=== PATIENT | male | born 1960 | race Caucasian/White ===

== ENCOUNTER 2016-04-25 09:19 | Day surgery (SDC) | payer MEDICAID ==
[~2016-04-25 09:19] MED LIST: BUPIVACAINE 0.5% PF 30 ML VIAL SUBQ ONE
[2016-04-25] MEDS ORDERED: ceFAZolin 2 GM/50 ML 50 ML IV ONE (09:24)
[2016-04-25] MEDS ORDERED: LACTATED RINGERS 1,000 ML IV ONE ×3 (09:30→17:30)
[2016-04-25] MEDS ORDERED: LIDOCAINE-PF 2% 10 ML AMP SUBQ ONE (15:45)
[2016-04-25] MEDS ORDERED: MIDAZOLAM 2 MG/2 ML VIAL IVP ONE (15:45)
[2016-04-25] MEDS ORDERED: fentaNYL 100 MCG/2 ML VIAL IVP ONE (15:45)
[2016-04-25] MEDS ORDERED: SUCCINYLCHOLINE 200 MG/10 ML VIAL IVP ONE (15:45)
[2016-04-25] MEDS ORDERED: PROPOFOL 200 MG/20 ML VIAL IVP ONE (15:45)
[2016-04-25] MEDS ORDERED: GLYCOPYRROLATE 1 MG/5 ML VIAL IVP ONE (15:45)
[2016-04-25] MEDS ORDERED: ACETAMINOPHEN 1,000 MG/100 ML VIAL IV ONE (15:45)
[2016-04-25] MEDS ORDERED: NEOSTIGMINE 1 MG/1 ML 10 ML MDV IVP ONE (15:45)
[2016-04-25] MEDS ORDERED: ONDANSETRON 4 MG/2 ML VIAL IVP ONE (15:45)
[2016-04-25] MEDS ORDERED: DEXAMETHASONE 4 MG/ML VIAL IVP ONE (15:45)
[2016-04-25] MEDS ORDERED: ROCURONIUM 50 MG/5 ML VIAL IVP ONE (15:45)
[2016-04-25] MEDS: fentaNYL 100 MCG/2 ML VIAL ONE ×4 (17:15→17:35)
[2016-04-25] MEDS: HYDROmorphone 1 MG/ML SYRINGE ONE ×2 (17:25→17:40)
[2016-04-25] MEDS ORDERED: HYDROcod/ACETAM 5/325 MG TABLET ONE (18:19)
[2016-04-25] MEDS ORDERED: ONDANSETRON 4 MG/2 ML VIAL ONE (18:22)
== END 2016-04-25 09:20 | disposition home or self-care (01) ==
PROC: 0YU54JZ Supplement Right Inguinal Region with Synthetic Substitute, Percutaneous Endoscopic Approach (ICD-10-PCS; principal; 2016-04-25 10:30)
DX: K40.90 Unilateral inguinal hernia, without obstruction or gangrene, not specified as recurrent (principal); F17.200 Nicotine dependence, unspecified, uncomplicated; I10 Essential (primary) hypertension; E78.5 Hyperlipidemia, unspecified; K21.9 Gastro-esophageal reflux disease without esophagitis
CPT/HCPCS: 49650; A9270; C1781; J0690; J1170; J7120

== ENCOUNTER 2017-04-25 08:07 | Emergency (ER) | payer MEDICAID ==
--- NOTE | 2017-04-25 08:26 | ED Physician Documentation ---
History of Present Illness - Stated complaint Stated Complaint: TOOTH PX - Chief complaint Chief Complaint: Heent - Additonal information Additional information: hx from pt 56 male porr dentition pain and swelling L lower 1st molar no fever no CP able to swallow and breathe Review of Systems Constitutional: denies: Fever, Chills Throat: reports: Dental pain / toothache Cardiac: denies: Chest pain / pressure Respiratory: denies: Dyspnea Immunocompromised: denies: Immunocompromised PD PAST MEDICAL HISTORY - Past Medical History Cardiovascular: Hypertension, High cholesterol Respiratory: None Endocrine/Autoimmune: None GI: GERD : None HEENT: None Psych: None Musculoskeletal: None Derm: Eczema - Past Surgical History Past Surgical History: No General: Hiatal hernia repair - Present Medications Home Medications: Ambulatory Orders Medication Instructions Recorded Confirmed Omeprazole [PriLOSEC] 20 mg PO DAILY 10/08/14 04/23/16 Amlodipine Besylate 10 mg PO DAILY 12/11/14 04/23/16 Lovastatin 40 mg PO DAILY 04/23/16 04/23/16 Amoxicillin 500 mg PO Q8H #21 capsule 04/25/17 - Allergies Allergies/Adverse Reactions: Allergies Allergy/AdvReac Type Severity Reaction Status Date / Time No Known Drug Allergies Allergy Verified 04/25/16 09:42 - Social History Does the pt smoke?: Yes Smoking Status: Current every day smoker Does the pt drink ETOH?: Yes Does the pt have substance abuse?: No - Immunizations Immunizations are current?: No PD ED PE NORMAL - Vitals Vital signs reviewed: Yes - General General: Alert and oriented X 3 - HEENT HEENT: Other (extensive decay, may teeth just stub in the gumline, L lower 1st molar tedner and surround gum inlfammed and swollen without discrete abscess to drain, no submandibular swelling, no trismus) - Cardiac Cardiac: RRR, No murmur - Respiratory Respiratory: No respiratory distress, Clear bilaterally Results - Vitals Vitals: Vital Signs - 24 hr 04/25/17 08:18 Temperature 36.5 C Heart Rate 90 Respiratory 18 Rate Blood Pressure 162/115 H O2 Saturation 97 Oxygen O2 Source Room air PD MEDICAL DECISION MAKING - ED course ED course: pt states pain controlled with tylenol he just feels he needs ab he has a dentist to fup with BP needs to be followed up Departure - Departure Disposition: Home, Self Care Clinical Impression: Dental infection Condition: Good Instructions: ED Abscess Dental Follow-Up: Shawnee Jama ARNP [Primary Care Provider] - (to get your blood pressure rechecked - it was high today) Prescriptions: Amoxicillin 500 mg PO Q8H #21 capsule
[2017-04-25 08:31] VITALS: BP 165/112
== END 2017-04-25 08:32 | disposition home or self-care (01) ==
LOC: ED 08:07
DX: K04.7 Periapical abscess without sinus (principal); I10 Essential (primary) hypertension; E78.00 Pure hypercholesterolemia, unspecified; F17.200 Nicotine dependence, unspecified, uncomplicated
CPT/HCPCS: 99283

== ENCOUNTER 2017-05-11 09:39 | Emergency (ER) | payer MEDICAID ==
[2017-05-11 09:48] VITALS: BP 173/109
[2017-05-11] MEDS ORDERED: LIDOCAINE 1% 2 ML VIAL ONE (11:18)
--- NOTE | 2017-05-11 11:41 | ED Physician Documentation ---
PD HPI HEENT - Stated complaint Stated Complaint: DENTAL PX - Chief complaint Chief Complaint: Heent - History obtained from History obtained from: Patient - History of Present Illness Timing - onset: How many days ago (2) Timing - duration: Days (2) Timing - details: Gradual onset, Still present Location: Tooth Improves: Medication Worsens: Everything Similar symptoms before: Diagnosis (abscessed tooth) Recently seen: Emergency Dept - Additional information Additional information: 56-year-old male has had a problem with a tooth in the left lower 2 weeks ago and he took some amoxicillin for this improved and now the pain is returned after he ate some pizza 2 days ago. Review of Systems Constitutional: reports: Fatigue. denies: Fever Eyes: denies: Decreased vision Ears: denies: Ear pain Nose: denies: Congestion Throat: reports: Dental pain / toothache. denies: Sore throat Cardiac: denies: Chest pain / pressure Respiratory: denies: Dyspnea, Cough PD PAST MEDICAL HISTORY - Past Medical History Cardiovascular: Hypertension, High cholesterol Respiratory: None Endocrine/Autoimmune: None GI: GERD : None HEENT: None Psych: None Musculoskeletal: None Derm: Eczema - Past Surgical History Past Surgical History: No General: Hiatal hernia repair - Present Medications Home Medications: Ambulatory Orders Medication Instructions Recorded Confirmed Omeprazole [PriLOSEC] 20 mg PO DAILY 10/08/14 04/23/16 Amlodipine Besylate 10 mg PO DAILY 12/11/14 04/23/16 Lovastatin 40 mg PO DAILY 04/23/16 04/23/16 Amoxicillin 500 mg PO Q8H #21 capsule 04/25/17 HYDROcod/ACETAM 5/325 [[place] 5/325] 1 - 2 ea PO Q6H PRN #15 tablet 05/11/17 Penicillin Vk 500 mg PO Q6H 7 Days #30 tablet 05/11/17 - Allergies Allergies/Adverse Reactions: Allergies Allergy/AdvReac Type Severity Reaction Status Date / Time No Known Drug Allergies Allergy Verified 04/25/16 09:42 - Social History Does the pt smoke?: Yes Smoking Status: Current every day smoker Does the pt drink ETOH?: Yes Does the pt have substance abuse?: No - Immunizations Immunizations are current?: No - POLST Patient has POLST: No PD ED PE NORMAL - Vitals Vital signs reviewed: Yes (hypertensive ) - General General: Alert and oriented X 3, No acute distress, Well developed/nourished - HEENT HEENT: Atraumatic, PERRL, EOMI, Other (There is a mass to the buccal gingival fold that is fluctuant. This is on the left lower.) - Neck Neck: Supple, no meningeal sign, No bony TTP - Respiratory Respiratory: No respiratory distress - Extremities Extremities: No deformity, No edema - Neuro Neuro: No motor deficit, No sensory deficit Eye Opening: Spontaneous Motor: Obeys Commands Verbal: Oriented GCS Score: 15 - Psych Psych: Normal mood, Normal affect PD ED PE EXPANDED - HEENT HEENT Visual: 1 - abscess, swelling, tenderness Results - Vitals Vitals: Vital Signs - 24 hr 05/11/17 09:45 Temperature 37.0 C Heart Rate 88 Respiratory 17 Rate Blood Pressure 173/109 H O2 Saturation 98 Oxygen O2 Source Room air Procedures - Abscess I&D (location) left buccal Preparation: Lidocaine 1%, Other (lolli-chandrika) Incision: Incised with scalpel, Purulent drainage, Loculations broken, Culture obtained Other: Pt tolerated well, Dressing applied, Antibiotic prescribed PD MEDICAL DECISION MAKING - ED course Complexity details: considered differential, d/w patient ED course: 56-year-old male with an abscess in the left vocal fold requires I&D. There is a fair amount of pus drained from the area and will place patient on some penicillin. Departure - Departure Disposition: 01 Home, Self Care Clinical Impression: Dental abscess Condition: Stable Instructions: ED Abscess Dental Follow-Up: Shawnee Jama ARNP [Primary Care Provider] - Prescriptions: HYDROcod/ACETAM 5/325 [[place] 5/325] 1 - 2 ea PO Q6H PRN #15 tablet PRN Reason: Pain Penicillin Vk 500 mg PO Q6H 7 Days #30 tablet Comments: Today in the Emergency Department your blood pressure was elevated. This can happen from the stress of the visit itself, from a current illness or circumstance or from uncontrolled hypertension. If you take blood pressure medications take your usual mediations, have your blood pressure re-checked in an appropriate setting and follow up any elevation with your primary care doctor.
== END 2017-05-11 11:47 | disposition home or self-care (01) ==
LOC: ED 09:39
DX: K04.7 Periapical abscess without sinus (principal); I10 Essential (primary) hypertension; E78.00 Pure hypercholesterolemia, unspecified; F17.200 Nicotine dependence, unspecified, uncomplicated
CPT/HCPCS: 41800; 87070; 87205; 99283

== ENCOUNTER 2018-05-01 07:16 | Outpatient (CLI) | payer MEDICAID ==
[2018-05-01 08:02] LABS: BASOPHILS % (AUTO) 0.7 %; EOSINOPHILS # (AUTO) 0.1 10^3/uL (0.0-0.7); EOSINOPHILS % (AUTO) 2.2 %; HGB - HEMOGLOBIN 16.6 g/dL (14.0-18.0); LYMPHOCYTES % (AUTO) 22.5 %; MEAN CORPUSCULAR HEMOGLOBIN 33.3 pg (27.0-31.0); MEAN CORPUSCULAR HGB CONC 35.3 g/dL (32.0-36.0); MEAN CORPUSCULAR VOLUME 94.4 fL (80.0-94.0); MEAN PLATELET VOLUME 9.3 fL (7.4-11.4); MONOCYTES # (AUTO) 0.4 10^3/uL (0.0-1.0); MONOCYTES % (AUTO) 8.6 %; NEUTROPHILS # (AUTO) 3.1 10^3/uL (1.5-6.6); PLT - PLATELET COUNT 170 10^3/uL (130-450); RED CELL DISTRIBUTION WIDTH 12.7 % (12.0-15.0); WHITE BLOOD COUNT 4.6 x10^3/uL (4.8-10.8)
[2018-05-01 08:15] LABS: ALBUMIN 4.5 g/dL (3.2-5.5); ALBUMIN/GLOBULIN RATIO 1.3 (1.0-2.2); ALKALINE PHOSPHATASE 55 IU/L (42-121); ALT ALANINE AMINOTRANSFERASE 67 IU/L (10-60); AST ASPARTATE AMINOTRANSFERASE 49 IU/L (10-42); BILIRUBIN,TOTAL 0.8 mg/dL (0.2-1.0); BUN - BLOOD UREA NITROGEN 7 mg/dL (6-20); CALCIUM 9.2 mg/dL (8.5-10.3); CARBON DIOXIDE - CO2 24 mmol/L (21-32); CHLORIDE 99 mmol/L (101-111); CHOL/HDL RATIO 4.2 (<5.0); CHOLESTEROL 204 mg/dL; CREATININE 0.8 mg/dL (0.6-1.2); GFR - MDRD 99 (>89); GLUCOSE 130 mg/dL (70-100); HB2 TOTAL 17.9 g/dL; HDL CHOLESTEROL 49 mg/dL; HEMOGLOBIN A1C 0.64 g/dL; HEMOGLOBIN A1C % 5.4 % (4.6-6.2); LDL CHOLESTEROL,CALCULATED 137 mg/dL; LDL/HDL RATIO 2.8 (<3.6); SODIUM 133 mmol/L (135-145); TOTAL PROTEIN 7.9 g/dL (6.7-8.2); VLDL CHOLESTEROL 18 mg/dL
== END 2018-05-01 07:17 | disposition home or self-care (01) ==
LOC: LAB 07:16
PROVIDERS: ATTEND Nurse Practitioner Family
DX: I10 Essential (primary) hypertension (principal); Z13.1 Encounter for screening for diabetes mellitus; E78.5 Hyperlipidemia, unspecified
CPT/HCPCS: 36415; 80053; 80061; 83036; 83721; 84443; 85025

== ENCOUNTER 2019-06-29 07:56 | Outpatient (CLI) | payer MEDICAID ==
[2019-06-29 08:27] LABS: BASOPHILS % (AUTO) 0.7 %; EOSINOPHILS # (AUTO) 0.1 10^3/uL (0.0-0.7); EOSINOPHILS % (AUTO) 1.8 %; HGB - HEMOGLOBIN 16.4 g/dL (14.0-18.0); LYMPHOCYTES # (AUTO) 0.9 10^3/uL (1.5-3.5); LYMPHOCYTES % (AUTO) 19.7 %; MEAN CORPUSCULAR HEMOGLOBIN 33.5 pg (27.0-31.0); MEAN CORPUSCULAR HGB CONC 36.3 g/dL (32.0-36.0); MEAN CORPUSCULAR VOLUME 92.4 fL (80.0-94.0); MEAN PLATELET VOLUME 10.9 fL (7.4-11.4); MONOCYTES # (AUTO) 0.4 10^3/uL (0.0-1.0); MONOCYTES % (AUTO) 8.3 %; NEUTROPHILS # (AUTO) 3.1 10^3/uL (1.5-6.6); NEUTROPHILS % (AUTO) 69.3 %; PLT - PLATELET COUNT 191 10^3/uL (130-450); RED BLOOD COUNT 4.89 10^6/uL (4.70-6.10); RED CELL DISTRIBUTION WIDTH 12.4 % (12.0-15.0); WHITE BLOOD COUNT 4.5 x10^3/uL (4.8-10.8)
[2019-06-29 08:35] LABS: ALBUMIN 4.5 g/dL (3.2-5.5); ALBUMIN/GLOBULIN RATIO 1.2 (1.0-2.2); ALKALINE PHOSPHATASE 60 IU/L (42-121); ALT ALANINE AMINOTRANSFERASE 72 IU/L (10-60); AST ASPARTATE AMINOTRANSFERASE 48 IU/L (10-42); BILIRUBIN,TOTAL 0.8 mg/dL (0.2-1.0); BUN - BLOOD UREA NITROGEN 7 mg/dL (6-20); CALCIUM 9.1 mg/dL (8.5-10.3); CARBON DIOXIDE - CO2 27 mmol/L (21-32); CHLORIDE 99 mmol/L (101-111); CHOL/HDL RATIO 4.3 (<5.0); CHOLESTEROL 220 mg/dL; CREATININE 0.8 mg/dL (0.6-1.2); GLUCOSE 127 mg/dL (70-100); HDL CHOLESTEROL 51 mg/dL; LDL CHOLESTEROL,CALCULATED 156 mg/dL; LDL/HDL RATIO 3.1 (<3.6); SODIUM 135 mmol/L (135-145); TOTAL PROTEIN 8.4 g/dL (6.7-8.2); VLDL CHOLESTEROL 13 mg/dL
== END 2019-06-29 07:57 | disposition home or self-care (01) ==
LOC: LAB 07:56
PROVIDERS: ATTEND Registered Nurse
DX: E78.5 Hyperlipidemia, unspecified (principal); I10 Essential (primary) hypertension
CPT/HCPCS: 36415; 80053; 80061; 83721; 84153; 84443; 85025

== ENCOUNTER 2020-04-26 08:00 | Outpatient (CLI) | payer MEDICAID ==
[2020-04-26 08:16] LABS: BASOPHILS % (AUTO) 0.7 %; EOSINOPHILS # (AUTO) 0.1 10^3/uL (0.0-0.7); EOSINOPHILS % (AUTO) 1.5 %; HGB - HEMOGLOBIN 15.9 g/dL (14.0-18.0); LYMPHOCYTES # (AUTO) 0.8 10^3/uL (1.5-3.5); MEAN CORPUSCULAR HEMOGLOBIN 32.4 pg (27.0-31.0); MEAN CORPUSCULAR HGB CONC 35.4 g/dL (32.0-36.0); MEAN CORPUSCULAR VOLUME 91.4 fL (80.0-94.0); MEAN PLATELET VOLUME 10.8 fL (7.4-11.4); MONOCYTES # (AUTO) 0.5 10^3/uL (0.0-1.0); MONOCYTES % (AUTO) 8.6 %; PLT - PLATELET COUNT 188 10^3/uL (130-450); RED BLOOD COUNT 4.91 10^6/uL (4.70-6.10); RED CELL DISTRIBUTION WIDTH 11.5 % (12.0-15.0); WHITE BLOOD COUNT 5.5 x10^3/uL (4.8-10.8)
[2020-04-26 08:36] LABS: ALBUMIN 4.6 g/dL (3.2-5.5); ALBUMIN/GLOBULIN RATIO 1.4 (1.0-2.2); ALKALINE PHOSPHATASE 60 IU/L (42-121); ALT ALANINE AMINOTRANSFERASE 93 IU/L (10-60); AST ASPARTATE AMINOTRANSFERASE 66 IU/L (10-42); BILIRUBIN,TOTAL 1.2 mg/dL (0.2-1.0); BUN - BLOOD UREA NITROGEN 10 mg/dL (6-20); CALCIUM 9.5 mg/dL (8.5-10.3); CARBON DIOXIDE - CO2 25 mmol/L (21-32); CHLORIDE 87 mmol/L (101-111); CHOL/HDL RATIO 3.8 (<5.0); CHOLESTEROL 215 mg/dL; CREATININE 0.8 mg/dL (0.6-1.2); GLUCOSE 128 mg/dL (70-100); HDL CHOLESTEROL 56 mg/dL; LDL CHOLESTEROL,CALCULATED 140 mg/dL; LDL/HDL RATIO 2.5 (<3.6); VLDL CHOLESTEROL 19 mg/dL
== END 2020-04-26 23:59 | disposition home or self-care (01) ==
LOC: LAB 08:00
PROVIDERS: ATTEND Registered Nurse
DX: R79.89 Other specified abnormal findings of blood chemistry (principal); F10.10 Alcohol abuse, uncomplicated; R73.03 Prediabetes; R73.9 Hyperglycemia, unspecified; E78.5 Hyperlipidemia, unspecified; I10 Essential (primary) hypertension
CPT/HCPCS: 36415; 80053; 80061; 83721; 84153; 84443; 85025

== ENCOUNTER 2020-11-29 13:51 | Outpatient (CLI) | payer MEDICAID | END 2020-11-29 13:52 | disposition home or self-care (01) | LOC: COV 13:51 | PROVIDERS: ATTEND Family Medicine | DX: U07.1 COVID-19 (principal) ==

== ENCOUNTER 2021-05-18 17:18 | Emergency (ER) | payer MEDICAID ==
[2021-05-18] MEDS ORDERED: KETOROLAC 15 MG/ML VIAL IVP STA (17:37)
[2021-05-18] MEDS ORDERED: SODIUM CHLORIDE 0.9% 1,000 ML IV STA (17:37)
[2021-05-18] MEDS ORDERED: HYDROmorphone 1 MG/ML CARPUJECT IVP STA (17:37)
--- NOTE | 2021-05-18 17:38 | ED Physician Documentation ---
PD HPI ABD PAIN - Stated complaint Stated Complaint: RIGHT SIDE BACK & GROIN PX - Chief complaint Chief Complaint: Abd Pain - History obtained from History obtained from: Patient - Additional information Additional information: 60-year-old gentleman developed gradual onset right flank pain radiating to the right testicle starting at 10 AM today. It is not associated with hematuria or any other urinary complaints. He has no history of renal colic. Does have a history of hypertension and tobacco abuse as well as high cholesterol. He denies nausea. Pain is constant. Review of Systems Ten Systems: 10 systems reviewed and negative Constitutional: denies: Fever, Chills Cardiac: denies: Chest pain / pressure, Palpitations Respiratory: denies: Dyspnea, Cough GI: denies: Nausea, Vomiting, Diarrhea : denies: Dysuria, Frequency PD PAST MEDICAL HISTORY - Past Medical History Cardiovascular: Hypertension, High cholesterol Respiratory: None Endocrine/Autoimmune: None GI: GERD : None HEENT: None Psych: None Musculoskeletal: None Derm: Eczema - Past Surgical History Past Surgical History: No General: Hiatal hernia repair - Present Medications Home Medications: Ambulatory Orders Medication Instructions Recorded Confirmed Omeprazole [PriLOSEC] 20 mg PO DAILY 10/08/14 05/18/21 Amlodipine Besylate 10 mg PO DAILY 12/11/14 05/18/21 Cefdinir 300 mg PO BID #20 cap 05/18/21 HYDROcod/ACETAM 5/325 [[place] 5/325] 1 - 2 tab PO Q6H PRN #15 tablet 05/18/21 Lisinopril [Zestril] 40 mg PO DAILY 05/18/21 05/18/21 Pravastatin Sodium 20 mg PO DAILY 05/18/21 05/18/21 - Allergies Allergies/Adverse Reactions: Allergies Allergy/AdvReac Type Severity Reaction Status Date / Time No Known Drug Allergies Allergy Verified 05/18/21 17:28 - Social History Does the pt smoke?: Yes Smoking Status: Current every day smoker Does the pt drink ETOH?: Yes Does the pt have substance abuse?: No - Immunizations Immunizations are current?: No - POLST Patient has POLST: No PD ED PE NORMAL - Vitals Vital signs reviewed: Yes - General General: Alert and oriented X 3, No acute distress - Neck Neck: Supple, no meningeal sign, No bony TTP - Cardiac Cardiac: RRR, No murmur - Respiratory Respiratory: No respiratory distress, Clear bilaterally - Abdomen Abdomen: Normal bowel sounds, Soft, Non tender - Back Back: No CVA TTP, No spinal TTP - Derm Derm: Normal color, Warm and dry - Extremities Extremities: No edema, No calf tenderness / cord - Neuro Neuro: Alert and oriented X 3, Normal speech Results - Vitals Vitals: Vital Signs - 24 hr 05/18/21 05/18/21 17:25 19:00 Temperature 36.8 C Heart Rate 110 H 93 Respiratory 20 16 Rate Blood Pressure 148/89 H 123/76 O2 Saturation 99 98 Oxygen O2 Source Room air - Labs Labs: Laboratory Tests 05/18/21 05/18/21 05/18/21 17:33 17:37 17:37 WBC 18.3 H RBC 4.34 L Hgb 13.9 L Hct 38.2 L MCV 88.0 MCH 32.0 H MCHC 36.4 H RDW 12.2 Plt Count 370 MPV 9.6 Neut # (Auto) 16.6 H Lymph # (Auto) 0.6 L [place] # (Auto) 0.8 Eos # (Auto) 0.0 Baso # (Auto) 0.1 Absolute Nucleated RBC 0.00 Nucleated RBC % 0.0 Sodium 125 L Potassium 4.2 Chloride 95 L Carbon Dioxide 19 L Anion Gap 11.0 BUN 8 Creatinine 1.2 Estimated GFR (MDRD) 61 L Glucose 136 H Calcium 8.9 Urine Color YELLOW Urine Clarity SL. CLOUDY Urine pH 6.0 Ur Specific [place] 1.020 Urine Protein NEGATIVE Urine Glucose (UA) NEGATIVE Urine Ketones TRACE Urine Occult Blood SMALL H Urine Nitrite NEGATIVE Urine Bilirubin NEGATIVE Urine Urobilinogen 0.2 (NORMAL) Ur Leukocyte Esterase LARGE H Urine RBC 0-5 Urine WBC >25 H Urine WBC Clumps PRESENT Ur Squamous Epith Cells RARE Squamous Urine Bacteria Few Ur Microscopic Review INDICATED Urine Culture Comments INDICATED PD MEDICAL DECISION MAKING - ED course ED course: 60-year-old gentleman presents with gradual onset right flank pain radiating to the testicle starting earlier today. Differential diagnosis includes vascular issue pyelonephritis or kidney stone. CT imaging shows moderate left sided hydroureter, but no stone. Some concern for prostatic issues. He was feeling much better after pain medication. He does have an elevated white count but appears nontoxic and without hemodynamic compromise. He was administered IV Rocephin and fluids here. Discussed need for follow-up. Departure - Departure Disposition: Home, Self Care Clinical Impression: Pyelonephritis Condition: Good Record reviewed to determine appropriate education?: Yes Instructions: Pyelonephritis Dc Prescriptions: Cefdinir 300 mg PO BID #20 cap HYDROcod/ACETAM 5/325 [[place] 5/325] 1 - 2 tab PO Q6H PRN #15 tablet PRN Reason: Pain Comments: You were seen today for pain from the right kidney and we found you to have a kidney infection on that side. You also have a moderately low sodium level at 125 but this is similar to a value you had about a month ago. Return if worsening, if you develop a high fever shaking chills. Follow-up with your doctor and consider urology referral to see if you are retaining urine from a large prostate. I sent your prescriptions electronically to [facility] in [place]. We will culture your urine, the results should be done in 48-72 hours. If an antibiotic change is necessary we will call you. Return if worse in the meantime, especially if you develop increasing flank pain, fevers, or cannot keep down the medication. I am prescribing a short course of narcotic pain medication for you. These are potentially dangerous and addictive medications that should be used carefully. These medications may constipate you. Take an njem-esy-pwdfvrh stool softener (docusate) twice daily with plenty of water while taking these medications. If you go 24 hours without a bowel movement, take hmti-eye-purgeyh miralax, per package instructions. Do not drink or drive while taking these medications. If you received narcotic or sedating medications while in the emergency department, do not drive for 24 hours. Store this medication in a safe, secure place and out of reach of children. It is a violation of federal law to give or sell this medication to another person or to use in a manner other than prescribed. The ED will not refill narcotic prescriptions, including prescriptions lost or stolen. To dispose of unwanted medications: 1. [facility] at [address] in [place] has a medication drop box. They accept prescription medications (in pill form) Thursday through Thursday 9:00 a.m. to 5:00 p.m. 2. The [facility] accepts prescription medications (in pill form only) for disposal year round. Call for more information. 3. Contact the [facility] for the next [facility] sponsored prescription drug collection event. , [phone], or [phone]; Note that many narcotic pain relievers also contain Tylenol/acetaminophen. Please ensure that your total dose of acetaminophen from all sources does not exceed 3 g (3000 mg) per day.
[2021-05-18 17:42] LABS: BASOPHILS # (AUTO) 0.1 10^3/uL (0.0-0.1); BASOPHILS % (AUTO) 0.4 %; EOSINOPHILS % (AUTO) 0.2 %; HCT - HEMATOCRIT 38.2 % (42.0-52.0); HGB - HEMOGLOBIN 13.9 g/dL (14.0-18.0); LYMPHOCYTES # (AUTO) 0.6 10^3/uL (1.5-3.5); LYMPHOCYTES % (AUTO) 3.3 %; MEAN CORPUSCULAR HGB CONC 36.4 g/dL (32.0-36.0); MEAN PLATELET VOLUME 9.6 fL (7.4-11.4); MONOCYTES # (AUTO) 0.8 10^3/uL (0.0-1.0); MONOCYTES % (AUTO) 4.4 %; NEUTROPHILS # (AUTO) 16.6 10^3/uL (1.5-6.6); NEUTROPHILS % (AUTO) 91.2 %; PLT - PLATELET COUNT 370 10^3/uL (130-450); RED BLOOD COUNT 4.34 10^6/uL (4.70-6.10); RED CELL DISTRIBUTION WIDTH 12.2 % (12.0-15.0); WHITE BLOOD COUNT 18.3 x10^3/uL (4.8-10.8)
[2021-05-18 17:48] LABS: BILIRUBIN,URINE NEGATIVE (NEGATIVE); GLUCOSE, URINE (UA) NEGATIVE (NEGATIVE); KETONES,URINE (UA) TRACE mg/dL (NEGATIVE); LEUKOCYTE ESTERASE, URINE LARGE (NEGATIVE); NITRITE,URINE NEGATIVE (NEGATIVE); OCCULT BLOOD,URINE SMALL (NEGATIVE); PROTEIN,URINE NEGATIVE (NEGATIVE); UROBILINOGEN,URINE 0.2 (NORMAL) E.U./dL (NORMAL)
[2021-05-18 17:49] LABS: CLARITY,URINE SL. CLOUDY (CLEAR)
[2021-05-18 17:51] LABS: CALCIUM 8.9 mg/dL (8.5-10.3); CREATININE 1.2 mg/dL (0.6-1.2); POTASSIUM 4.2 mmol/L (3.5-5.0)
[2021-05-18 17:56] LABS: BACTERIA,URINE Few /HPF (None Seen); RBC,URINE 0-5 /HPF (0-5); SQUAMOUS EPITHELIAL CELL,UR RARE Squamous (<= Few); WBC CLUMPS,URINE PRESENT; WBC,URINE >25 /HPF (0-3)
[2021-05-18] MEDS ORDERED: cefTRIAXone 1 GM in SODIUM CHLORIDE 0.9% MINIBAG 100 ML IV STA (18:09)
[2021-05-18] MEDS ORDERED: cefTRIAXone 1 GM VIAL ONE (18:20)
--- NOTE | 2021-05-18 18:20 | CT Report ---
PROCEDURE: Abdomen/Pelvis WO INDICATIONS: R flank pain TECHNIQUE: Noncontrast 5 mm thick sections acquired from the diaphragms to the symphysis. 5 mm coronal and sagi ttal reformats were then performed. For radiation dose reduction, the following was used: automated exposure control, adjustment of mA and/or kV according to patient size. COMPARISON: None. FINDINGS: Image quality: Excellent. ABDOMEN: Lung bases: Lung bases are clear. Heart size is normal. At least moderate coronary artery calcific ation is seen. Solid organs: Liver and spleen are normal in size. Gallbladder wall does not appear thickened. P ancreas is normal in contours. No adrenal nodules. There is moderate right-sided hydronephrosis and hydroureter seen. There is mild to moderate right-si ded perinephric fat stranding. No stones are seen along the course of the right ureter. No ureteral s tones are seen. No left-sided stones are seen. No left-sided hydronephrosis. Peritoneum and bowel: Unenhanced bowel loops demonstrate normal wall thickness and caliber. No free fluid or air. Distal colonic diverticulosis is seen, without findings of active diverticulitis. A n ormal appendix is incidentally noted. Nodes and vessels: No retroperitoneal or mesenteric adenopathy by size criteria. Aorta and inferior vena cava are normal in caliber. Miscellaneous: No ventral hernias. PELVIS: Genitourinary: The bladder is decompressed, which limits its evaluation. Moderate circumferential amanda dder wall thickening is seen. Miscellaneous: No inguinal adenopathy. Bilateral fat-containing inguinal hernias can be seen. Bones: No suspicious bony lesions. S-shaped scoliotic curvature is incidentally noted. Age-appropri ate degenerative changes are seen, which are worst involving the lower lumbar spine bilateral L5 pars defects are seen. Grade 1 L5-S1 anterolisthesis is seen. No vertebral body compression fractures. IMPRESSION: Moderate left-sided hydroureter and hydronephrosis can be seen, yet without an obstructing stone. Ple ase consider a recently passed stone. Please also correlate for urinary tract infection with pyelonep hritis. No nonobstructing stones are seen. Moderate bladder wall thickening is seen, which may simply be secondary to its decompressed state. Ho wever, please consider bladder outlet obstruction in a male patient of this age. Incidental note is made of: At least moderate coronary artery calcification S shaped scoliotic curvature Normal appendix Diverticulosis, without active diverticulitis Bilateral fat-containing inguinal hernias Bilateral L5 pars defects, with grade 1 L5-S1 anterolisthesis Focal lower lumbar spine degenerative change Reviewed by: Leobardo Solomon MD on 05/18/2021 5:18 PM [facility] Approved by: Leobardo Solomon MD on 05/18/2021 5:18 PM [facility] Station ID: [id number]
[2021-05-18 19:00] VITALS: BP 123/76
== END 2021-05-18 19:08 | disposition home or self-care (01) ==
LOC: ED 17:18
DX: N12 Tubulo-interstitial nephritis, not specified as acute or chronic (principal); I10 Essential (primary) hypertension; Z72.0 Tobacco use
CPT/HCPCS: 36415; 74176; 80048; 81001; 85025; 87077; 87086; 87181; 96365; 96375; 99284; J1170; 81003

== ENCOUNTER 2021-06-30 12:12 | Emergency (ER) | payer MEDICAID ==
[2021-06-30 12:26] VITALS: BP 146/96
[2021-06-30 12:52] LABS: BILIRUBIN,URINE NEGATIVE (NEGATIVE); GLUCOSE, URINE (UA) NEGATIVE (NEGATIVE); KETONES,URINE (UA) NEGATIVE (NEGATIVE); LEUKOCYTE ESTERASE, URINE MODERATE (NEGATIVE); NITRITE,URINE NEGATIVE (NEGATIVE); OCCULT BLOOD,URINE SMALL (NEGATIVE); PROTEIN,URINE TRACE mg/dL (NEGATIVE); UROBILINOGEN,URINE 0.2 (NORMAL) E.U./dL (NORMAL)
[2021-06-30 13:09] LABS: CLARITY,URINE HAZY (CLEAR); WBC,URINE >25 /HPF (0-3)
[2021-06-30 13:10] LABS: BACTERIA,URINE Few /HPF (None Seen); RBC,URINE 0-5 /HPF (0-5); SQUAMOUS EPITHELIAL CELL,UR FEW Squamous (<= Few)
--- NOTE | 2021-06-30 13:21 | ED Physician Documentation ---
PD HPI MALE - Stated complaint Stated Complaint: HEMATURIA - Chief complaint Chief Complaint: General - History obtained from History obtained from: Patient - History of Present Illness Timing - onset: Today Timing - duration: Hours Timing - details: Gradual onset, Still present Associated symptoms: Urinary frequency, Hematuria Similar symptoms before: Diagnosis (pyelonephritis) Recently seen: Emergency Dept - Additional information Additional information: Previously well 60-year-old male with a history of hypertension was seen in the emergency department 6 weeks ago with back pain and hematuria was diagnosed with pyelonephritis and had a sensitive E. coli grow from the urine culture. He was treated with Rocephin and cefdinir and had improvement in his symptoms but he never felt that he got completely better. He has a weak stream and this is unchanged. He has a double dribble now when he urinates. Today he has developed pink urine and on a void following that he had some small clots in the urine as well. He is not on Flomax and he has not been able to get into see his primary care doctor until the of this month. He denies fever or back pain today. Review of Systems Constitutional: denies: Fever Eyes: denies: Decreased vision Ears: denies: Ear pain Nose: denies: Congestion Throat: denies: Sore throat Cardiac: denies: Chest pain / pressure Respiratory: denies: Dyspnea, Cough GI: denies: Abdominal Pain, Nausea, Vomiting, Constipation, Diarrhea : reports: Dysuria, Frequency, Hematuria Skin: denies: Rash Musculoskeletal: denies: Neck pain, Back pain, Extremity pain Neurologic: denies: Generalized weakness, Focal weakness, Numbness PD PAST MEDICAL HISTORY - Past Medical History Cardiovascular: Hypertension, High cholesterol Respiratory: None Endocrine/Autoimmune: None GI: GERD : None HEENT: None Psych: None Musculoskeletal: None Derm: Eczema - Past Surgical History Past Surgical History: No General: Hiatal hernia repair - Present Medications Home Medications: Ambulatory Orders Medication Instructions Recorded Confirmed Omeprazole [PriLOSEC] 20 mg PO DAILY 10/08/14 05/18/21 Amlodipine Besylate 10 mg PO DAILY 12/11/14 05/18/21 Cefdinir 300 mg PO BID #20 cap 05/18/21 HYDROcod/ACETAM 5/325 [[place] 5/325] 1 - 2 tab PO Q6H PRN #15 tablet 05/18/21 Lisinopril [Zestril] 40 mg PO DAILY 05/18/21 05/18/21 Pravastatin Sodium 20 mg PO DAILY 05/18/21 05/18/21 Cefdinir 300 mg PO BID #14 cap 06/30/21 Tamsulosin [Flomax] 0.4 mg PO DAILY #20 cap 06/30/21 - Allergies Allergies/Adverse Reactions: Allergies Allergy/AdvReac Type Severity Reaction Status Date / Time No Known Drug Allergies Allergy Verified 06/30/21 12:23 - Social History Does the pt smoke?: Yes Smoking Status: Current every day smoker Does the pt drink ETOH?: Yes Does the pt have substance abuse?: No - Immunizations Immunizations are current?: No - POLST Patient has POLST: No PD ED PE NORMAL - Vitals Vital signs reviewed: Yes (hypertension) - General General: Alert and oriented X 3, No acute distress, Well developed/nourished - HEENT HEENT: Atraumatic, PERRL, EOMI - Neck Neck: Supple, no meningeal sign - Cardiac Cardiac: RRR, No murmur - Respiratory Respiratory: No respiratory distress, Clear bilaterally - Abdomen Abdomen: Normal bowel sounds, Soft, Non tender, Non distended, No organomegaly - Back Back: No CVA TTP, No spinal TTP - Derm Derm: Normal color, Warm and dry, No rash - Extremities Extremities: No deformity, No edema - Neuro Neuro: Alert and oriented X 3, purler 2-12 intact, No motor deficit, Normal speech Eye Opening: Spontaneous Motor: Obeys Commands Verbal: Oriented GCS Score: 15 - Psych Psych: Normal mood, Normal affect Results - Vitals Vitals: Vital Signs - 24 hr 06/30/21 12:16 Temperature 36.4 C L Heart Rate 90 Respiratory 16 Rate Blood Pressure 146/96 H O2 Saturation 97 Oxygen O2 Source Room air - Labs Labs: Laboratory Tests 06/30/21 12:45 Urine Color LIGHT YELLOW Urine Clarity HAZY Urine pH 6.0 Ur Specific [place] <=1.005 Urine Protein TRACE Urine Glucose (UA) NEGATIVE Urine Ketones NEGATIVE Urine Occult Blood SMALL H Urine Nitrite NEGATIVE Urine Bilirubin NEGATIVE Urine Urobilinogen 0.2 (NORMAL) Ur Leukocyte Esterase MODERATE H Urine RBC 0-5 Urine WBC >25 H Ur Squamous Epith Cells FEW Squamous Urine Bacteria Few Ur Microscopic Review INDICATED Urine Culture Comments INDICATED PD MEDICAL DECISION MAKING - ED course Complexity details: reviewed old records, reviewed results, re-evaluated patient, considered differential, d/w patient ED course: 60-year-old male with acute hematuria and no back pain has urinary tract infection on evaluation of the urine with hematuria. He does not have any flank pain today he does not have any fever nausea or vomiting. Today we will put him onto the Flomax and repeat his dose of cefdinir. He does have follow-up. Departure - Departure Disposition: 01 Home, Self Care Clinical Impression: Prostatic hypertrophy Urinary tract infection Qualifiers: Urinary tract infection type: acute cystitis Hematuria presence: with hematuria Qualified Code(s): N30.01 - Acute cystitis with hematuria Condition: Stable Instructions: ED UTI Cystitis Male, ED Prostate Enlarged Follow-Up: Holley Dodson ARNP [Primary Care Provider] - Prescriptions: Cefdinir 300 mg PO BID #14 cap Tamsulosin [Flomax] 0.4 mg PO DAILY #20 cap Comments: Santosh, today it looks like you have urinary tract infection again. There is blood in the urine and the prior organism that grew from your culture was sensitive to the antibiotic you were prescribed. Today we are prescribing some Flomax to help improve your stream. In addition I have E scribed the antibiotic to [facility] in [place].
== END 2021-06-30 13:42 | disposition home or self-care (01) ==
LOC: ED 12:12
DX: N40.0 Benign prostatic hyperplasia without lower urinary tract symptoms (principal); N30.01 Acute cystitis with hematuria; F17.200 Nicotine dependence, unspecified, uncomplicated
CPT/HCPCS: 81001; 81003; 87077; 87086; 87181; 99282; 99283

== ENCOUNTER 2021-07-17 07:11 | Outpatient (CLI) | payer MEDICAID ==
[2021-07-17 07:22] LABS: BASOPHILS % (AUTO) 0.4 %; EOSINOPHILS # (AUTO) 0.1 10^3/uL (0.0-0.7); EOSINOPHILS % (AUTO) 1.2 %; HCT - HEMATOCRIT 42.5 % (42.0-52.0); HGB - HEMOGLOBIN 14.8 g/dL (14.0-18.0); MEAN CORPUSCULAR HEMOGLOBIN 32.5 pg (27.0-31.0); MEAN CORPUSCULAR HGB CONC 34.8 g/dL (32.0-36.0); MEAN CORPUSCULAR VOLUME 93.4 fL (80.0-94.0); MEAN PLATELET VOLUME 10.1 fL (7.4-11.4); MONOCYTES # (AUTO) 0.4 10^3/uL (0.0-1.0); MONOCYTES % (AUTO) 5.6 %; NEUTROPHILS # (AUTO) 5.4 10^3/uL (1.5-6.6); NEUTROPHILS % (AUTO) 78.5 %; PLT - PLATELET COUNT 220 10^3/uL (130-450); RED BLOOD COUNT 4.55 10^6/uL (4.70-6.10); RED CELL DISTRIBUTION WIDTH 12.5 % (12.0-15.0); WHITE BLOOD COUNT 6.9 x10^3/uL (4.8-10.8)
[2021-07-17 07:42] LABS: ALBUMIN 3.9 g/dL (3.2-5.5); ALKALINE PHOSPHATASE 55 IU/L (42-121); ALT ALANINE AMINOTRANSFERASE 20 IU/L (10-60); AST ASPARTATE AMINOTRANSFERASE 21 IU/L (10-42); BILIRUBIN,TOTAL 0.9 mg/dL (0.2-1.0); BUN - BLOOD UREA NITROGEN 9 mg/dL (6-20); CALCIUM 9.1 mg/dL (8.5-10.3); CARBON DIOXIDE - CO2 27 mmol/L (21-32); CHLORIDE 98 mmol/L (101-111); CHOL/HDL RATIO 4.5 (<5.0); CHOLESTEROL 223 mg/dL; GFR - MDRD 76 (>89); GLUCOSE 160 mg/dL (70-100); HDL CHOLESTEROL 50 mg/dL; LDL CHOLESTEROL,CALCULATED 139 mg/dL; LDL/HDL RATIO 2.8 (<3.6); POTASSIUM 4.2 mmol/L (3.5-5.0); SODIUM 133 mmol/L (135-145); TOTAL PROTEIN 7.8 g/dL (6.7-8.2); TRIGLYCERIDES 168 mg/dL; VLDL CHOLESTEROL 34 mg/dL
[2021-07-17 07:54] LABS: THYROID STIMULATING HORMONE 2.2 uIU/mL (0.34-5.60)
== END 2021-07-17 07:12 | disposition home or self-care (01) ==
LOC: LAB 07:11
PROVIDERS: ATTEND Registered Nurse
DX: R73.9 Hyperglycemia, unspecified (principal); E78.5 Hyperlipidemia, unspecified; I10 Essential (primary) hypertension; Z13.29 Encounter for screening for other suspected endocrine disorder
CPT/HCPCS: 36415; 80053; 80061; 83721; 84443; 85025

== ENCOUNTER 2021-08-01 06:54 | Outpatient (CLI) | payer MEDICAID ==
[2021-08-01 12:55] LABS: ESTIMATED AVERAGE GLUCOSE 117 mg/dL (70-100); HEMOGLOBIN A1c% 5.7 % (4.27-6.07)
== END 2021-08-01 06:55 | disposition home or self-care (01) ==
LOC: LAB 06:54
PROVIDERS: ATTEND Registered Nurse
DX: N40.0 Benign prostatic hyperplasia without lower urinary tract symptoms (principal); R73.03 Prediabetes
CPT/HCPCS: 36415; 83036; 84153

== ENCOUNTER 2021-12-30 07:17 | Emergency (ER) | payer MEDICAID ==
--- NOTE | 2021-12-30 07:27 | ED Physician Documentation ---
PD HPI ABD PAIN - Stated complaint Stated Complaint: ABD PX - History obtained from History obtained from: Patient - History of Present Illness Timing - onset: How many days ago (6) Timing - duration: Days (6) Timing - details: Gradual onset, Still present, Waxing and waning Quality: Cramping, Aching Location: Suprapubic, Other (lower abd) Radiation: No: Left flank, Right flank Improved by: BM (but has had just small amounts of stool out.). No: Eating Worsened by: Eating (about 30 minutes after, increased lower cramping.) Associated symptoms: Nausea, Constipation. No: Fever, Diarrhea, Dysuria (has cloudy urine though), Hematuria Recently seen: Not recently seen Review of Systems Constitutional: denies: Fever, Chills, Myalgias Nose: denies: Rhinorrhea / runny nose, Congestion Throat: denies: Sore throat Cardiac: denies: Chest pain / pressure Respiratory: denies: Dyspnea, Cough GI: reports: Abdominal Pain, Nausea, Vomiting (just once this morning), Constipation. denies: Diarrhea : reports: Frequency, Hesitancy. denies: Dysuria, Hematuria Skin: denies: Rash, Lesions Musculoskeletal: denies: Neck pain, Back pain PD PAST MEDICAL HISTORY - Past Medical History Cardiovascular: Hypertension, High cholesterol Respiratory: None Endocrine/Autoimmune: None GI: GERD : None HEENT: None Psych: None Musculoskeletal: None Derm: Eczema - Past Surgical History Past Surgical History: No General: Hiatal hernia repair - Present Medications Home Medications: Ambulatory Orders Medication Instructions Recorded Confirmed Omeprazole [PriLOSEC] 20 mg PO DAILY 10/08/14 05/18/21 Amlodipine Besylate 10 mg PO DAILY 12/11/14 05/18/21 Cefdinir 300 mg PO BID #20 cap 05/18/21 HYDROcod/ACETAM 5/325 [[place] 5/325] 1 - 2 tab PO Q6H PRN #15 tablet 05/18/21 Lisinopril [Zestril] 40 mg PO DAILY 05/18/21 05/18/21 Pravastatin Sodium 20 mg PO DAILY 05/18/21 05/18/21 Cefdinir 300 mg PO BID #14 cap 06/30/21 Tamsulosin [Flomax] 0.4 mg PO DAILY #20 cap 06/30/21 Docusate Sodium 100Mg Capsule 100 mg PO DAILY #15 cap 12/30/21 [Colace 100Mg Capsule] HYDROcod/ACETAM 5/325 [[place] 5/325] 1 ea PO Q6H PRN #18 tablet 12/30/21 Ondansetron Odt [Zofran] 4 mg TL Q6H PRN #15 tablet 12/30/21 cephALEXin [Keflex] 500 mg PO TID #20 cap 12/30/21 metroNIDAZOLE [Flagyl] 250 mg PO TID #20 tablet 12/30/21 - Allergies Allergies/Adverse Reactions: Allergies Allergy/AdvReac Type Severity Reaction Status Date / Time No Known Drug Allergies Allergy Verified 12/30/21 07:27 - Social History Does the pt smoke?: Yes Smoking Status: Current every day smoker Does the pt drink ETOH?: Yes Does the pt have substance abuse?: No - Immunizations Immunizations are current?: No - POLST Patient has POLST: No PD ED PE NORMAL - Vitals Vital signs reviewed: Yes - General General: Alert and oriented X 3, No acute distress, Well developed/nourished - Cardiac Cardiac: RRR, No murmur - Respiratory Respiratory: Clear bilaterally - Abdomen Abdomen: Normal bowel sounds, Soft, Non distended, No organomegaly, Other (tender periumbilical and lower abd both left and right. Mild guarding. No percussion nor rebound. Umbilical area without noted hernia.) - Male Male : Deferred - Rectal Rectal: Deferred - Back Back: No CVA TTP - Derm Derm: Normal color, Warm and dry - Extremities Extremities: Normal ROM s pain, No edema, No calf tenderness / cord - Neuro Neuro: Alert and oriented X 3, No motor deficit, Normal speech Results - Vitals Vitals: Oxygen O2 Source Room air - Labs Labs: Microbiology 12/30/21 07:45 Urine Culture - Final Urine,Random Escherichia Coli Laboratory Tests 12/30/21 12/30/21 12/30/21 07:45 07:45 08:05 WBC 9.4 RBC 4.60 L Hgb 14.5 Hct 40.2 L MCV 87.4 MCH 31.5 H MCHC 36.1 H RDW 13.1 Plt Count 287 MPV 11.4 Neut # (Auto) 7.8 H Lymph # (Auto) 1.0 L [place] # (Auto) 0.5 Eos # (Auto) 0.1 Baso # (Auto) 0.1 Absolute Nucleated RBC 0.00 Nucleated RBC % 0.0 Sodium 130 L Potassium 4.0 Chloride 96 L Carbon Dioxide 24 Anion Gap 10.0 BUN 10 Creatinine 1.1 Estimated GFR (MDRD) 68 L Glucose 114 H Calcium 9.0 Total Bilirubin 0.6 AST 25 ALT 27 Alkaline Phosphatase 61 Total Protein 7.3 Albumin 3.6 Globulin 3.7 Albumin/Globulin Ratio 1.0 Lipase 23 Urine Color YELLOW Urine Clarity SL. CLOUDY Urine pH 6.0 Ur Specific [place] 1.020 Urine Protein 30 H Urine Glucose (UA) NEGATIVE Urine Ketones TRACE Urine Occult Blood SMALL H Urine Nitrite POSITIVE H Urine Bilirubin NEGATIVE Urine Urobilinogen 0.2 (NORMAL) Ur Leukocyte Esterase LARGE H Urine RBC 6-10 H Urine WBC >25 H Ur Squamous Epith Cells NONE SEEN Urine Bacteria Moderate H Ur Microscopic Review INDICATED Urine Culture Comments INDICATED - Rads (name of study) abd/pelvic CT Radiology: Prelim report reviewed (sigmoid diverticulitis with phlegmon. No abscess. c/w local perforation. thickened bladder wall as well. ), See rad report PD MEDICAL DECISION MAKING - ED course Complexity details: reviewed results, re-evaluated patient (the patient says he feels more comfortable with meds. Discussed findings and info from Dr. Connelly and patient does not want to be hospitalized at this time. Wants to try home therapy. ), considered differential, d/w patient, d/w [facility] consultant (Dr. Connelly - who said not surgical approach. Could be home therapy versus inpt depending on patient symptoms. ) Departure - Departure Disposition: 01 Home, Self Care Clinical Impression: UTI (urinary tract infection), Sigmoid diverticulitis Condition: Stable Record reviewed to determine appropriate education?: Yes Follow-Up: Holley Dodson ARNP [Primary Care Provider] - Louis Connelly MD [Provider Admit Priv/Credential] - Prescriptions: Docusate Sodium 100Mg Capsule [Colace 100Mg Capsule] 100 mg PO DAILY #15 cap metroNIDAZOLE [Flagyl] 250 mg PO TID #20 tablet cephALEXin [Keflex] 500 mg PO TID #20 cap HYDROcod/ACETAM 5/325 [[place] 5/325] 1 ea PO Q6H PRN #18 tablet PRN Reason: Pain Ondansetron Odt [Zofran] 4 mg TL Q6H PRN #15 tablet PRN Reason: Nausea / Vomiting Comments: Your urine sample does show signs of a bladder infection. The CT scan did not show any inflammation of the kidneys however suggest a bladder infection. The CT scan also showed diverticulitis in the sigmoid area which is the lower part of the intestine just behind the bladder so is likely accounting for the feeling of having to have a bowel movement or constipation. It does have a local area of inflammation that might have been a small perforation. I talked with her surgeon and who said this would be treated with antibiotics and not surgical. Use the cephalexin and metronidazole antibiotics 3 times daily for a week as prescribed. Stay well-hydrated. Ondansetron if needed for nausea. Add Tylenol or hydrocodone/acetaminophen if needed for pains every 6 hours. Liquid to soft food diet over the next few days. Use docusate mild stool softener daily for the next several days as well. Recheck if not improving well over the next several days return if worsening. Follow-up with Dr. Connelly regarding potential colonoscopy once this is improved in the near future, to ensure no other abnormalities in the intestine and that it heals up well. I sent your prescriptions to [facility] pharmacy in [place]. My narcotic instructions I am prescribing a short course of narcotic pain medication for you. These are potentially dangerous and addictive medications that should be used carefully. These medications may constipate you. Take an [id number] stool softener such as docusate twice daily with plenty of water while taking these medications. If you go 24 hours without a bowel movement, take [id number] MiraLAX, per package instructions. Do not drink or drive while taking these medications. If you received narcotic or sedating medications while in the emergency department do not drive for 24 hours. Store this medication in a safe, secure place and out of reach of children. It is a violation of federal law to give or sell this medication to another person or to use in a manner other than prescribed. The ED will not refill narcotic prescriptions, including prescriptions lost or stolen. You can dispose of unwanted medications at the [facility]'s office or at several pharmacies such as [facility]. Discharge Date/Time: 12/30/21 11:47
[2021-12-30] MEDS ORDERED: HYDROmorphone 1 MG/ML CARPUJECT IVP STA (07:45)
[2021-12-30] MEDS ORDERED: KETOROLAC 15 MG/ML VIAL IVP STA (07:45)
[2021-12-30] MEDS ORDERED: SODIUM CHLORIDE 0.9% 1,000 ML IV STA (07:45)
[2021-12-30] MEDS ORDERED: ONDANSETRON 4 MG/2 ML VIAL IVP STA (07:45)
[2021-12-30 07:53] LABS: BILIRUBIN,URINE NEGATIVE (NEGATIVE); GLUCOSE, URINE (UA) NEGATIVE (NEGATIVE); KETONES,URINE (UA) TRACE mg/dL (NEGATIVE); LEUKOCYTE ESTERASE, URINE LARGE (NEGATIVE); NITRITE,URINE POSITIVE (NEGATIVE); OCCULT BLOOD,URINE SMALL (NEGATIVE); PROTEIN,URINE 30 mg/dL (NEGATIVE); UROBILINOGEN,URINE 0.2 (NORMAL) E.U./dL (NORMAL)
[2021-12-30 07:54] LABS: BASOPHILS # (AUTO) 0.1 10^3/uL (0.0-0.1); BASOPHILS % (AUTO) 0.6 %; EOSINOPHILS # (AUTO) 0.1 10^3/uL (0.0-0.7); EOSINOPHILS % (AUTO) 1.1 %; HCT - HEMATOCRIT 40.2 % (42.0-52.0); HGB - HEMOGLOBIN 14.5 g/dL (14.0-18.0); LYMPHOCYTES % (AUTO) 10.2 %; MEAN CORPUSCULAR HEMOGLOBIN 31.5 pg (27.0-31.0); MEAN CORPUSCULAR HGB CONC 36.1 g/dL (32.0-36.0); MEAN CORPUSCULAR VOLUME 87.4 fL (80.0-94.0); MEAN PLATELET VOLUME 11.4 fL (7.4-11.4); MONOCYTES # (AUTO) 0.5 10^3/uL (0.0-1.0); NEUTROPHILS # (AUTO) 7.8 10^3/uL (1.5-6.6); NEUTROPHILS % (AUTO) 82.8 %; PLT - PLATELET COUNT 287 10^3/uL (130-450); RED CELL DISTRIBUTION WIDTH 13.1 % (12.0-15.0); WHITE BLOOD COUNT 9.4 x10^3/uL (4.8-10.8)
[2021-12-30 08:00] LABS: CLARITY,URINE SL. CLOUDY (CLEAR)
[2021-12-30 08:13] LABS: BACTERIA,URINE Moderate /HPF (None Seen); SQUAMOUS EPITHELIAL CELL,UR NONE SEEN (<= Few); WBC,URINE >25 /HPF (0-3)
[2021-12-30 08:24] LABS: ALBUMIN 3.6 g/dL (3.2-5.5); BILIRUBIN,TOTAL 0.6 mg/dL (0.2-1.0); CREATININE 1.1 mg/dL (0.6-1.2); TOTAL PROTEIN 7.3 g/dL (6.7-8.2)
--- NOTE | 2021-12-30 09:27 | CT Report ---
PROCEDURE: Abdomen/Pelvis W INDICATIONS: LLQ Abdominal pain, diverticulitis suspected CONTRAST: IV CONTRAST: Optiray 320 ml: 100 PO CONTRAST: *NO PO CONTRAST TECHNIQUE: After the administration of IV contrast, 5 mm thick sections acquired from the diaphragms to the symp hysis. 5 mm thick coronal and sagittal reformats were acquired. For radiation dose reduction, the f ollowing was used: automated exposure control, adjustment of mA and/or kV according to patient size. COMPARISON: 05/18/2021 FINDINGS: Image quality: Excellent. ABDOMEN: Lung bases: Lung bases are clear. Heart size is normal. Moderate, partially imaged coronary artery calcification and aortic valvular calcification. Solid organs: The liver is normal in size and slightly steatotic. 2 coarse rounded parenchymal calci fications present along the bare area of the liver. The gallbladder is distended. No calcifications. The biliary system is nondilated. The pancreas, spleen, and adrenal glands are normal. Symmetric loraine l enhancement. No hydronephrosis, nephrolithiasis, or hydroureter. Peritoneum and bowel: There are acute inflammatory changes arising from the mid sigmoid colon includ ing an exophytic masslike area of inflammation in the central upper pelvis. There is no associated fl uid collection or extraluminal gas. There are several diverticula seen in the distal descending and p roximal sigmoid colon. There is trace free pelvic fluid. Liquid stool is present in the proximal colon. No colonic obstruction. There is a normal appendix. St omach and small bowel are largely decompressed. Nodes and vessels: No retroperitoneal or mesenteric adenopathy by size criteria. Aorta and inferior vena cava are normal in size. Moderate abdominal aortic calcification. Miscellaneous: No ventral hernias. PELVIS: Genitourinary: Urinary bladder is partially decompressed and the wall is diffusely thickened. The pro state gland is mildly enlarged. Miscellaneous: No inguinal hernias or adenopathy. Surgical clips in the right inguinal region. Bones: No suspicious bony lesions. Degenerative disc height loss L4-5 and L5-S1. Pars defects at L5. No vertebral body compression fractures. IMPRESSION: 1. Acute sigmoid colitis, probably diverticulitis, with adjacent masslike inflammation, potentially a phlegmon. No drainable fluid to suggest abscess. This likely reflects a contained perforation, thoug h no extraluminal gas is present. Underlying perforated neoplasm is not excluded and colonoscopy foll owing resolution of acute inflammation is recommended. 2. No evidence of bowel obstruction. 3. Thickened urinary bladder wall, also seen previously, nonspecific. Correlate with UA and consider further studies to exclude underlying neoplasm. 4. Mild hepatic steatosis. Reviewed by: Qiana Jade MD on 12/30/2021 9:25 AM PDT Approved by: Qiana Jade MD on 12/30/2021 9:25 AM PDT Station ID: [id number]
[2021-12-30] MEDS ORDERED: cefTRIAXone 1 GM VIAL IVP STA (09:39)
[2021-12-30] MEDS ORDERED: metroNIDAZOLE 500 MG/100 ML 500 MG/100 ML BAG IV ONE (10:02)
[2021-12-30 11:28] VITALS: BP 138/81
== END 2021-12-30 11:47 | disposition home or self-care (01) ==
LOC: ED 07:17
DX: N39.0 Urinary tract infection, site not specified (principal); K57.32 Diverticulitis of large intestine without perforation or abscess without bleeding; I10 Essential (primary) hypertension; F17.200 Nicotine dependence, unspecified, uncomplicated
CPT/HCPCS: 36415; 74177; 80053; 81001; 83690; 85025; 87086; 87181; 96365; 96375; 99284; 99285; J1170; Q9967; 81003

== ENCOUNTER 2022-01-23 15:23 | Emergency (ER) | payer MEDICAID ==
[2022-01-23 15:43] LABS: BILIRUBIN,URINE NEGATIVE (NEGATIVE); GLUCOSE, URINE (UA) NEGATIVE (NEGATIVE); KETONES,URINE (UA) NEGATIVE (NEGATIVE); LEUKOCYTE ESTERASE, URINE LARGE (NEGATIVE); NITRITE,URINE NEGATIVE (NEGATIVE); OCCULT BLOOD,URINE SMALL (NEGATIVE); PH,URINE 7.5 PH (5.0-7.5); PROTEIN,URINE NEGATIVE (NEGATIVE); UROBILINOGEN,URINE 0.2 (NORMAL) E.U./dL (NORMAL)
[2022-01-23 15:47] LABS: CLARITY,URINE HAZY (CLEAR)
[2022-01-23 15:51] LABS: BACTERIA,URINE Rare /HPF (None Seen); RBC,URINE 0-5 /HPF (0-5); SQUAMOUS EPITHELIAL CELL,UR NONE SEEN (<= Few); WBC,URINE >25 /HPF (0-3)
--- NOTE | 2022-01-23 16:57 | ED Physician Documentation ---
PD HPI ABD PAIN - Stated complaint Stated Complaint: UTI - Chief complaint Chief Complaint: Abd Pain - History obtained from History obtained from: Patient - Additional information Additional information: Patient is a 61-year-old male presenting for evaluation of lower abdominal pain with 1 episode of emesis this morning along with urinary urgency and dysuria also starting this morning. He was seen earlier this month for similar symptoms and found to have a urinary tract infection as well as diverticulitis with possible phlegmon formation. He was discharged on Flagyl and cephalexin with improvement in his symptoms. He been doing well up until this morning. He denies diarrhea or bloody stools. He denies blood in his emesis. Denies flank pain. Nothing makes his pain better or worse. Denies fever, chest pain or difficulty breathing. Review of Systems Constitutional: denies: Fever Nose: denies: Congestion Cardiac: denies: Chest pain / pressure Respiratory: denies: Dyspnea GI: reports: Abdominal Pain, Nausea, Vomiting : reports: Dysuria, Frequency Musculoskeletal: denies: Back pain Neurologic: denies: Headache PD PAST MEDICAL HISTORY - Past Medical History Cardiovascular: Hypertension, High cholesterol Respiratory: None Endocrine/Autoimmune: None GI: GERD : None HEENT: None Psych: None Musculoskeletal: None Derm: Eczema - Past Surgical History Past Surgical History: No General: Hiatal hernia repair - Present Medications Home Medications: Ambulatory Orders Medication Instructions Recorded Confirmed Omeprazole [PriLOSEC] 20 mg PO DAILY 10/08/14 05/18/21 Amlodipine Besylate 10 mg PO DAILY 12/11/14 05/18/21 Cefdinir 300 mg PO BID #20 cap 05/18/21 HYDROcod/ACETAM 5/325 [[place] 5/325] 1 - 2 tab PO Q6H PRN #15 tablet 05/18/21 Lisinopril [Zestril] 40 mg PO DAILY 05/18/21 05/18/21 Pravastatin Sodium 20 mg PO DAILY 05/18/21 05/18/21 Cefdinir 300 mg PO BID #14 cap 06/30/21 Tamsulosin [Flomax] 0.4 mg PO DAILY #20 cap 06/30/21 Docusate Sodium 100Mg Capsule 100 mg PO DAILY #15 cap 12/30/21 [Colace 100Mg Capsule] HYDROcod/ACETAM 5/325 [[place] 5/325] 1 ea PO Q6H PRN #18 tablet 12/30/21 Ondansetron Odt [Zofran] 4 mg TL Q6H PRN #15 tablet 12/30/21 cephALEXin [Keflex] 500 mg PO TID #20 cap 12/30/21 metroNIDAZOLE [Flagyl] 250 mg PO TID #20 tablet 12/30/21 Amox/Clav 875/125 [Augmentin] 1 each PO Q8H #30 tablet 01/23/22 - Allergies Allergies/Adverse Reactions: Allergies Allergy/AdvReac Type Severity Reaction Status Date / Time No Known Drug Allergies Allergy Verified 01/23/22 15:28 - Social History Does the pt smoke?: Yes Smoking Status: Current every day smoker Does the pt drink ETOH?: Yes Does the pt have substance abuse?: No - Immunizations Immunizations are current?: No - POLST Patient has POLST: No PD ED PE NORMAL - General General: Alert and oriented X 3, No acute distress, Well developed/nourished - HEENT HEENT: Atraumatic, Moist mucous membranes - Neck Neck: Supple, no meningeal sign - Cardiac Cardiac: RRR, Strong equal pulses - Respiratory Respiratory: No respiratory distress, Clear bilaterally - Abdomen Abdomen: Normal bowel sounds, Soft, Non distended, Other (Suprapubic and left lower quadrant tenderness to palpation; No masses, no hernias) - Back Back: No CVA TTP - Derm Derm: Warm and dry - Extremities Extremities: No edema Results - Vitals Vitals: Vital Signs - 24 hr 01/23/22 01/23/22 01/23/22 15:28 15:31 17:31 Temperature 36.5 C 36.5 C Heart Rate 100 100 82 Respiratory 16 16 18 Rate Blood Pressure 139/84 H 139/84 H 148/89 H O2 Saturation 98 98 98 01/23/22 01/23/22 19:00 19:58 Temperature Heart Rate 82 87 Respiratory 18 18 Rate Blood Pressure 129/82 H 129/82 H O2 Saturation 97 97 Oxygen O2 Source Room air - Labs Labs: Laboratory Tests 01/23/22 01/23/22 01/23/22 15:34 17:05 17:05 WBC 11.5 H RBC 4.12 L Hgb 12.7 L Hct 37.3 L MCV 90.5 MCH 30.8 MCHC 34.0 RDW 12.6 Plt Count 186 MPV 10.7 Neut # (Auto) 9.7 H Lymph # (Auto) 0.9 L [place] # (Auto) 0.8 Eos # (Auto) 0.0 Baso # (Auto) 0.0 Absolute Nucleated RBC 0.00 Nucleated RBC % 0.0 Sodium 126 L Potassium 3.9 Chloride 92 L Carbon Dioxide 24 Anion Gap 10.0 BUN 9 Creatinine 0.9 Estimated GFR (MDRD) 85 L Glucose 113 H Calcium 9.0 Total Bilirubin 1.5 H AST 17 ALT 15 Alkaline Phosphatase 58 Total Protein 7.5 Albumin 3.7 Globulin 3.8 Albumin/Globulin Ratio 1.0 Lipase 25 Urine Color YELLOW Urine Clarity HAZY Urine pH 7.5 Ur Specific [place] 1.010 Urine Protein NEGATIVE Urine Glucose (UA) NEGATIVE Urine Ketones NEGATIVE Urine Occult Blood SMALL H Urine Nitrite NEGATIVE Urine Bilirubin NEGATIVE Urine Urobilinogen 0.2 (NORMAL) Ur Leukocyte Esterase LARGE H Urine RBC 0-5 Urine WBC >25 H Ur Squamous Epith Cells NONE SEEN Urine Bacteria Rare Ur Microscopic Review INDICATED Urine Culture Comments INDICATED PD MEDICAL DECISION MAKING - ED course ED course: Pt with abdominal pain and UTI symptoms. Similar visit few weeks ago and found to have UTI and diverticulitis with phlegmon. VSS. Labs with hyponatremia - appears somewhat chronic for pt. U/A suggests infection. CT pending and signed out to Dr. Almonte. Departure - Departure Disposition: 01 Home, Self Care Clinical Impression: Phlegmon UTI (urinary tract infection) Qualifiers: Urinary tract infection type: acute cystitis Hematuria presence: without hematuria Qualified Code(s): N30.00 - Acute cystitis without hematuria Condition: Stable Instructions: ED UTI Cystitis Male Follow-Up: Louis Connelly MD [Provider Admit Priv/Credential] - Holley Dodson ARNP [Primary Care Provider] - Prescriptions: Amox/Clav 875/125 [Augmentin] 1 each PO Q8H #30 tablet Comments: You have a urinary tract infection. We have started you on antibiotics. I have sent a prescription to [facility] in [place]. I would recommend close follow- up with your primary care doctor as this is your second episode in less than a month. If you have any worsening symptoms please return to the ER. Your prescription was sent to the [facility] pharmacy. Please take all antibiotics until gone. Please make sure to follow-up with Dr. Connelly for further care. Your CT scan results are below. CT Abd/pelvis: IMPRESSION: 1. Phlegmon adjacent to the sigmoid colon is not significant change compared to 12/30/2021. No fluid density or extra luminal gas demonstrated. 2. Abnormal thickening of the sigmoid colon in the midline pelvis. Suspect sequelae of diverticulitis. Recommend follow-up colonoscopy if not recently performed. 3. Abnormal thickening at the posterior bladder with a tract extending from the thickened sigmoid colon. No gas within the urinary bladder. However, this could represent a collapsed colovesicular fistula especially in the setting of recurrent UTI. Discharge Date/Time: 01/23/22 19:58
[2022-01-23] MEDS ORDERED: SODIUM CHLORIDE 0.9% 1,000 ML IV STA (16:58)
[2022-01-23] MEDS ORDERED: CEFEPIME 2 GM in SODIUM CHLORIDE 0.9% MINIBAG 100 ML IV STA (16:59)
[2022-01-23] MEDS ORDERED: iohexoL-300 100 ML VIAL ONE (17:03)
[2022-01-23 17:13] LABS: BASOPHILS % (AUTO) 0.3 %; EOSINOPHILS % (AUTO) 0.2 %; HCT - HEMATOCRIT 37.3 % (42.0-52.0); HGB - HEMOGLOBIN 12.7 g/dL (14.0-18.0); LYMPHOCYTES # (AUTO) 0.9 10^3/uL (1.5-3.5); LYMPHOCYTES % (AUTO) 7.9 %; MEAN CORPUSCULAR HEMOGLOBIN 30.8 pg (27.0-31.0); MEAN CORPUSCULAR VOLUME 90.5 fL (80.0-94.0); MEAN PLATELET VOLUME 10.7 fL (7.4-11.4); MONOCYTES # (AUTO) 0.8 10^3/uL (0.0-1.0); MONOCYTES % (AUTO) 6.7 %; NEUTROPHILS # (AUTO) 9.7 10^3/uL (1.5-6.6); NEUTROPHILS % (AUTO) 84.6 %; PLT - PLATELET COUNT 186 10^3/uL (130-450); RED BLOOD COUNT 4.12 10^6/uL (4.70-6.10); RED CELL DISTRIBUTION WIDTH 12.6 % (12.0-15.0); WHITE BLOOD COUNT 11.5 x10^3/uL (4.8-10.8)
[2022-01-23 17:29] LABS: ALBUMIN 3.7 g/dL (3.2-5.5); BILIRUBIN,TOTAL 1.5 mg/dL (0.2-1.0); CREATININE 0.9 mg/dL (0.6-1.2); POTASSIUM 3.9 mmol/L (3.5-5.0); TOTAL PROTEIN 7.5 g/dL (6.7-8.2)
[2022-01-23] MEDS ORDERED: iohexoL-300 100 ML VIAL IVP ONE (18:07)
--- NOTE | 2022-01-23 18:36 | CT Report ---
PROCEDURE: ABDOMEN/PELVIS W INDICATIONS: LLQ pain/abnormal CT few weeks ago CONTRAST: 100ML OMNI 300 TECHNIQUE: After the administration of intravenous contrast, 5 mm thick sections acquired from the diaphragms to the symphysis. 5 mm thick coronal and sagittal reformats were acquired. For radiation dose reducti on, the following was used: automated exposure control, adjustment of mA and/or kV according to pipe ent size. COMPARISON: CT abdomen and pelvis 12/30/2021. Noncontrast CT abdomen pelvis 05/18/2021. FINDINGS: Image quality: Excellent. ABDOMEN: Lung bases: Lung bases are clear. Heart size is normal. Solid organs: Liver and spleen are normal in size and enhancement. Hepatic calcified granuloma. Gal lbladder is distended. No calcified gallstones. Biliary system is non dilated. Pancreas enhances no rmally. No adrenal nodules. Kidneys demonstrate normal size and enhancement. Mild left pelviectasis and prominence of the left ureter. Peritoneum and bowel: Thickening of the sigmoid colon in the midline pelvis appears similar. There is mild surrounding inflammatory change. There is a tract which projects towards the urinary bladder, ( ). There is thickening at the urinary bladder. Superior to this thickened loop of bowel at the le [place] of the sacral promontory is a phlegmon which measures 5.3 x 3.1 x 2.7 cm, (351 and 6/35), simila r in size to 12/30/2021. No extraluminal gas. No fluid density. Sigmoid colon diverticulosis. The appe ndix is not dilated. No small bowel obstruction. Nodes and vessels: No retroperitoneal or mesenteric adenopathy by size criteria. Aorta and inferior vena cava are normal in size. Circumferential plaque. Miscellaneous: No ventral hernias. PELVIS: Genitourinary: Thickening at the posterior bladder adjacent to the small tract. No air within the amanda dder lumen. Bladder is distended. Prominent prostate gland. Miscellaneous: No definite inguinal hernias or adenopathy. Prior right inguinal hernia repair. Bones: No suspicious bony lesions. No vertebral body compression fractures. Bilateral L5 pars defec t. There is 0.7 cm anterolisthesis of L5 on S1. Loss of intervertebral disc space height at L5-S1 and L4-L5. IMPRESSION: 1. Phlegmon adjacent to the sigmoid colon is not significant change compared to 12/30/2021. No fluid d ensity or extra luminal gas demonstrated. 2. Abnormal thickening of the sigmoid colon in the midline pelvis. Suspect sequelae of diverticulitis . Recommend follow-up colonoscopy if not recently performed. 3. Abnormal thickening at the posterior bladder with a tract extending from the thickened sigmoid col on. No gas within the urinary bladder. However, this could represent a collapsed colovesicular fistul a especially in the setting of recurrent UTI. Reviewed by: Jesse Cantrell MD on 01/23/2022 6:34 PM PDT Approved by: Jesse Cantrell MD on 01/23/2022 6:34 PM PDT Station ID: [id number]
[2022-01-23 19:28] VITALS: BP 129/82
--- NOTE | 2022-01-23 19:50 | ED Physician Documentation ---
ED Addendum - Addendum Addendum: 01/23/22 19:52 Patient was signed out to me by Dr. Morales. His CT scan appears largely unchanged from prior. 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 Possible phlegmon near the sacrum. Does not appear accessible to IR drainage. No abscess. We will place him back on antibiotics and have him follow-up closely with general surgery. I spoke with Dr. Alcaraz And she will pass the information along to Dr. Connelly. The patient will be seen on February [address] Connelly if not sooner. Patient is very well-appearing, nontoxic. Afebrile. Abdomen is soft, nontender nondistended. Patient counseled regarding signs and symptoms for which I believe and urgent re-evaluation would be necessary. Patient with good understanding of and agreement to plan and is comfortable going home at this time This document was made in part using voice recognition software. While efforts are made to proofread this document, sound alike and grammatical errors may occur. ABDOMEN: Lung bases: Lung bases are clear. Heart size is normal. Solid organs: Liver and spleen are normal in size and enhancement. Hepatic calcified granuloma. Gallbladder is distended. No calcified gallstones. Biliary system is non dilated. Pancreas enhances normally. No adrenal nodules. Kidneys demonstrate normal size and enhancement. Mild left pelviectasis and prominence of the left ureter. Peritoneum and bowel: Thickening of the sigmoid colon in the midline pelvis appears similar. There is mild surrounding inflammatory change. There is a tract which projects towards the urinary bladder, (). There is thickening at the urinary bladder. Superior to this thickened loop of bowel at the level of the sacral promontory is a phlegmon which measures 5.3 x 3.1 x 2.7 cm, ( and ), similar in size to 12/30/2021. No extraluminal gas. No fluid density. Sigmoid colon diverticulosis. The appendix is not dilated. No small bowel obstruction. Nodes and vessels: No retroperitoneal or mesenteric adenopathy by size criteria. Aorta and inferior vena cava are normal in size. Circumferential plaque. Miscellaneous: No ventral hernias. PELVIS: Genitourinary: Thickening at the posterior bladder adjacent to the small tract. No air within the bladder lumen. Bladder is distended. Prominent prostate gland. Miscellaneous: No definite inguinal hernias or adenopathy. Prior right inguinal hernia repair. Bones: No suspicious bony lesions. No vertebral body compression fractures. Bilateral L5 pars defect. There is 0.7 cm anterolisthesis of L5 on S1. Loss of intervertebral disc space height at L5- S1 and L4-L5. IMPRESSION: 1. Phlegmon adjacent to the sigmoid colon is not significant change compared to 12/30/2021. No fluid density or extra luminal gas demonstrated. 2. Abnormal thickening of the sigmoid colon in the midline pelvis. Suspect sequelae of diverticulitis. Recommend follow-up colonoscopy if not recently performed. 3. Abnormal thickening at the posterior bladder with a tract extending from the thickened sigmoid colon. No gas within the urinary bladder. However, this could represent a collapsed colovesicular fistula especially in the setting of recurrent UTI. Departure - Departure Disposition: 01 Home, Self Care Clinical Impression: Phlegmon UTI (urinary tract infection) Qualifiers: Urinary tract infection type: acute cystitis Hematuria presence: without hematuria Qualified Code(s): N30.00 - Acute cystitis without hematuria Condition: Stable Instructions: ED UTI Cystitis Male Follow-Up: Holley Dodson ARNP [Primary Care Provider] - Louis Connelly MD [Provider Admit Priv/Credential] - Prescriptions: Amox/Clav 875/125 [Augmentin] 1 each PO Q8H #30 tablet Comments: You have a urinary tract infection. We have started you on antibiotics. I have sent a prescription to [facility] in [place]. I would recommend close follow- up with your primary care doctor as this is your second episode in less than a month. If you have any worsening symptoms please return to the ER. Your prescription was sent to the [facility] pharmacy. Please take all antibiotics until gone. Please make sure to follow-up with Dr. Connelly for further care. Your CT scan results are below. CT Abd/pelvis:
== END 2022-01-23 19:58 | disposition home or self-care (01) ==
LOC: ED 15:23
DX: K57.80 Diverticulitis of intestine, part unspecified, with perforation and abscess without bleeding (principal); N30.00 Acute cystitis without hematuria; I10 Essential (primary) hypertension; F17.200 Nicotine dependence, unspecified, uncomplicated
CPT/HCPCS: 36415; 74177; 80053; 81001; 83690; 85025; 87077; 87086; 87181; 96365; 99283; 99284; Q9967; 81003

== ENCOUNTER 2022-03-12 04:15 | Outpatient (CLI) | payer MEDICAID ==
[2022-03-12 04:51] LABS: BASOPHILS # (AUTO) 0.1 10^3/uL (0.0-0.1); BASOPHILS % (AUTO) 0.7 %; EOSINOPHILS # (AUTO) 0.2 10^3/uL (0.0-0.7); EOSINOPHILS % (AUTO) 2.2 %; HGB - HEMOGLOBIN 15.1 g/dL (14.0-18.0); LYMPHOCYTES # (AUTO) 1.1 10^3/uL (1.5-3.5); LYMPHOCYTES % (AUTO) 15.8 %; MEAN CORPUSCULAR HEMOGLOBIN 31.1 pg (27.0-31.0); MEAN CORPUSCULAR HGB CONC 34.3 g/dL (32.0-36.0); MEAN CORPUSCULAR VOLUME 90.7 fL (80.0-94.0); MEAN PLATELET VOLUME 10.5 fL (7.4-11.4); MONOCYTES # (AUTO) 0.5 10^3/uL (0.0-1.0); MONOCYTES % (AUTO) 6.7 %; NEUTROPHILS # (AUTO) 5.1 10^3/uL (1.5-6.6); NEUTROPHILS % (AUTO) 74.5 %; PLT - PLATELET COUNT 207 10^3/uL (130-450); RED BLOOD COUNT 4.85 10^6/uL (4.70-6.10); RED CELL DISTRIBUTION WIDTH 13.4 % (12.0-15.0); WHITE BLOOD COUNT 6.9 x10^3/uL (4.8-10.8)
[2022-03-12 05:07] LABS: ALBUMIN 4.3 g/dL (3.2-5.5); ALBUMIN/GLOBULIN RATIO 1.1 (1.0-2.2); ALKALINE PHOSPHATASE 61 IU/L (42-121); ALT ALANINE AMINOTRANSFERASE 25 IU/L (10-60); AST ASPARTATE AMINOTRANSFERASE 26 IU/L (10-42); BILIRUBIN,TOTAL 0.8 mg/dL (0.2-1.0); BUN - BLOOD UREA NITROGEN 9 mg/dL (6-20); CALCIUM 9.5 mg/dL (8.5-10.3); CARBON DIOXIDE - CO2 25 mmol/L (21-32); CHLORIDE 97 mmol/L (101-111); CHOL/HDL RATIO 2.9 (<5.0); CHOLESTEROL 190 mg/dL; CREATININE 0.9 mg/dL (0.6-1.2); GFR - MDRD 85 (>89); GLUCOSE 133 mg/dL (70-100); HDL CHOLESTEROL 66 mg/dL; LDL CHOLESTEROL,CALCULATED 111 mg/dL; LDL/HDL RATIO 1.7 (<3.6); POTASSIUM 4.4 mmol/L (3.5-5.0); SODIUM 132 mmol/L (135-145); TOTAL PROTEIN 8.3 g/dL (6.7-8.2); TRIGLYCERIDES 64 mg/dL; VLDL CHOLESTEROL 13 mg/dL
[2022-03-12 05:18] LABS: THYROID STIMULATING HORMONE 2.1 uIU/mL (0.34-5.60)
[2022-03-12 12:22] LABS: ESTIMATED AVERAGE GLUCOSE 114 mg/dL (70-100); HEMOGLOBIN A1c% 5.6 % (4.27-6.07)
== END 2022-03-12 04:16 | disposition home or self-care (01) ==
LOC: LAB 04:15
PROVIDERS: ATTEND Registered Nurse Diabetes Educator
DX: I10 Essential (primary) hypertension (principal); E78.5 Hyperlipidemia, unspecified; R53.83 Other fatigue; N52.9 Male erectile dysfunction, unspecified; R73.03 Prediabetes
CPT/HCPCS: 36415; 80053; 80061; 83036; 83721; 84403; 84443; 85025

== ENCOUNTER 2022-07-30 05:30 | Outpatient (CLI) | payer MEDICAID ==
[2022-07-30 06:20] LABS: CHOL/HDL RATIO 2.7 (<5.0); CHOLESTEROL 176 mg/dL; HDL CHOLESTEROL 65 mg/dL; LDL CHOLESTEROL,CALCULATED 95 mg/dL; LDL/HDL RATIO 1.5 (<3.6); TRIGLYCERIDES 82 mg/dL; VLDL CHOLESTEROL 16 mg/dL
== END 2022-07-30 05:31 | disposition home or self-care (01) ==
LOC: LAB 05:30
PROVIDERS: ATTEND Registered Nurse Diabetes Educator
DX: E78.5 Hyperlipidemia, unspecified (principal)
CPT/HCPCS: 36415; 80061; 83721

== ENCOUNTER 2022-10-11 05:37 | Outpatient (CLI) | payer MEDICAID ==
[2022-10-11 06:01] LABS: CALCIUM 9.3 mg/dL (8.5-10.3)
[2022-10-11 15:11] LABS: ESTIMATED AVERAGE GLUCOSE 111 mg/dL (70-100); HEMOGLOBIN A1c% 5.5 % (4.27-6.07)
== END 2022-10-11 05:38 | disposition home or self-care (01) ==
LOC: LAB 05:37
PROVIDERS: ATTEND Registered Nurse Diabetes Educator
DX: I10 Essential (primary) hypertension (principal); R73.03 Prediabetes
CPT/HCPCS: 36415; 80048; 83036

== ENCOUNTER 2023-04-06 05:44 | Outpatient (CLI) | payer MEDICAID ==
--- NOTE | 2023-04-06 15:58 | XRAY Report ---
PROCEDURE: Chest 2V INDICATIONS: DYSPNEA ON EXERTION TECHNIQUE: 2 views of the chest were acquired. COMPARISON: None. FINDINGS: Surgical changes and devices: None. Lungs and pleura: No pleural effusions or pneumothorax. Lungs are clear. Mediastinum: Mediastinal contours appear normal. Heart size is normal. Bones and chest wall: No suspicious bony lesions. Overlying soft tissues appear unremarkable. IMPRESSION: No acute cardiopulmonary process. Reviewed by: Lydia Haywood MD on 04/06/2023 3:56 PM [facility] Approved by: Lydia Haywood MD on 04/06/2023 3:56 PM [facility] Station ID: [id number]
== END 2023-04-06 05:45 | disposition home or self-care (01) ==
LOC: LAB 05:44 → DI 05:45
PROVIDERS: ATTEND Registered Nurse Diabetes Educator
DX: R06.09 Other forms of dyspnea (principal)

== ENCOUNTER 2023-04-09 04:48 | Outpatient (CLI) | payer MEDICAID ==
[2023-04-09 05:41] LABS: CHOL/HDL RATIO 3.3 (<5.0); CHOLESTEROL 202 mg/dL; HDL CHOLESTEROL 61 mg/dL; LDL CHOLESTEROL,CALCULATED 127 mg/dL; LDL/HDL RATIO 2.1 (<3.6); TRIGLYCERIDES 71 mg/dL (48-352); VLDL CHOLESTEROL 14 mg/dL
[2023-04-09 05:45] LABS: HCT - HEMATOCRIT 43.2 % (42.0-52.0); HGB - HEMOGLOBIN 14.7 g/dL (14.0-18.0); MEAN CORPUSCULAR HEMOGLOBIN 32.3 pg (27.0-31.0); MEAN CORPUSCULAR VOLUME 94.9 fL (80.0-94.0); MEAN PLATELET VOLUME 10.7 fL (7.4-11.4); RED BLOOD COUNT 4.55 10^6/uL (4.70-6.10); RED CELL DISTRIBUTION WIDTH 11.6 % (12.0-15.0); WHITE BLOOD COUNT 5.9 x10^3/uL (4.8-10.8)
[2023-04-09 05:54] LABS: THYROID STIMULATING HORMONE 1.65 uIU/mL (0.34-5.60)
[2023-04-09 10:26] LABS: ESTIMATED AVERAGE GLUCOSE 111 mg/dL (70-100); HEMOGLOBIN A1c% 5.5 % (4.27-6.07)
== END 2023-04-09 04:49 | disposition home or self-care (01) ==
LOC: LAB 04:48
PROVIDERS: ATTEND Registered Nurse Diabetes Educator
DX: I10 Essential (primary) hypertension (principal); E78.5 Hyperlipidemia, unspecified; R73.03 Prediabetes
CPT/HCPCS: 36415; 80061; 83036; 83721; 84443; 85027

== ENCOUNTER 2023-06-16 05:46 | Outpatient (CLI) | payer MEDICAID ==
[2023-06-16 06:05] LABS: HCT - HEMATOCRIT 43.7 % (42.0-52.0); HGB - HEMOGLOBIN 15.1 g/dL (14.0-18.0); MEAN CORPUSCULAR HEMOGLOBIN 32.7 pg (27.0-31.0); MEAN CORPUSCULAR HGB CONC 34.6 g/dL (32.0-36.0); MEAN CORPUSCULAR VOLUME 94.6 fL (80.0-94.0); MEAN PLATELET VOLUME 10.5 fL (7.4-11.4); RED BLOOD COUNT 4.62 10^6/uL (4.70-6.10); RED CELL DISTRIBUTION WIDTH 11.7 % (12.0-15.0)
[2023-06-16 06:19] LABS: ALBUMIN 4.4 g/dL (3.2-5.5); ALBUMIN/GLOBULIN RATIO 1.5 (1.0-2.2); ALKALINE PHOSPHATASE 62 IU/L (42-121); ALT ALANINE AMINOTRANSFERASE 24 IU/L (10-60); AST ASPARTATE AMINOTRANSFERASE 26 IU/L (10-42); BILIRUBIN,TOTAL 0.7 mg/dL (0.2-1.0); BUN - BLOOD UREA NITROGEN 9 mg/dL (6-20); CALCIUM 9.3 mg/dL (8.5-10.3); CARBON DIOXIDE - CO2 29 mmol/L (21-32); CHLORIDE 100 mmol/L (101-111); CHOL/HDL RATIO 3.8 (<5.0); CHOLESTEROL 189 mg/dL; CREATININE 1.1 mg/dL (0.6-1.3); GFR - MDRD 67 (>89); GLUCOSE 141 mg/dL (74-104); HDL CHOLESTEROL 50 mg/dL; LDL CHOLESTEROL,CALCULATED 120 mg/dL; LDL/HDL RATIO 2.4 (<3.6); SODIUM 133 mmol/L (135-145); TOTAL PROTEIN 7.3 g/dL (6.4-8.9); TRIGLYCERIDES 97 mg/dL (48-352); VLDL CHOLESTEROL 19 mg/dL
== END 2023-06-16 05:47 | disposition home or self-care (01) ==
LOC: LAB 05:46
PROVIDERS: ATTEND Registered Nurse Diabetes Educator
DX: R73.03 Prediabetes (principal); E78.5 Hyperlipidemia, unspecified; I10 Essential (primary) hypertension; Z51.81 Encounter for therapeutic drug level monitoring; R06.00 Dyspnea, unspecified
CPT/HCPCS: 36415; 80053; 80061; 83721; 85027

== ENCOUNTER 2023-06-25 06:26 | Day surgery (SDC) | payer MEDICAID ==
[2023-06-25] MEDS ORDERED: PROPOFOL 500 MG/50 ML 500 MG/50 ML VIAL ONE (06:51)
[2023-06-25] MEDS ORDERED: MIDAZOLAM 2 MG/2 ML VIAL ONE (06:51)
--- NOTE | 2023-06-25 06:54 | ANESTHESIA ---
Pre-Anesthesia VS, & Labs - Diagnosis hx diverticulitis - Procedure colonoscopy Height: 5 ft 10 in Weight (kg): 88.3 kg Body Mass Index: 27.9 BMI Classification: Overweight - NPO >8 hours Last Fluid Intake: am prep - Lab Results Lab results reviewed: Yes Home Medications and Allergies Home Medications: Ambulatory Orders buPROPion HCL [Wellbutrin Xl] 300 mg PO DAILY 06/24/23 metFORMIN [Glucophage] 500 mg PO DAILY PM 06/24/23 Omeprazole [PriLOSEC] 20 mg PO DAILY 10/08/14 Amlodipine Besylate 10 mg PO DAILY 12/11/14 Lisinopril [Zestril] 40 mg PO DAILY 05/18/21 Pravastatin Sodium 20 mg PO DAILY 05/18/21 buPROPion HCL [Wellbutrin Xl] 300 mg PO DAILY 06/24/23 metFORMIN [Glucophage] 500 mg PO DAILY PM 06/24/23 Allergies/Adverse Reactions: Allergies Allergy/AdvReac Type Severity Reaction Status Date / Time rosuvastatin AdvReac Unknown Verified 06/25/23 06:53 Anes History & Medical History - Anesthetic History Anesthesia Complications: reports: No previous complications Family history of Anesthesia Complications: Denies Family history of Malignant Hyperthermia: Denies - Medical History Cardiovascular: reports: Hypertension, High cholesterol Pulmonary: reports: None Gastrointestinal: reports: GERD Urinary: reports: None Musculoskeletal: reports: None Endocrine/Autoimmune: reports: None Skin: reports: Eczema Smoking Status: Current every day smoker - Surgical History General: reports: Hiatal hernia repair, Colonoscopy Exam General: Alert, Oriented x3, Cooperative Dental: WNL, Other (caps at front teeth) Mouth Openin Fingerbreadth Neck Mobility: Normal Mallampati classification: II Thyromental Distance: 4-6 cm Respiratory: Lungs clear, Normal breath sounds Cardiovascular: Regular rate Neurological: Normal speech Mental/Cognitive Status: Alert/Oriented X3, Normal for patient Cognitive Status: Within normal limits Plan Anesthesia Type: General, Total IV Consent for Procedure(s) Verified and Reviewed: Yes Code Status: Attempt Resuscitation ASA classification: 2-Mild systemic disease Is this case an emergency?: No
[2023-06-25] MEDS: LACTATED RINGERS 1,000 ML IV ONE (06:55)
[2023-06-25] MEDS ORDERED: LIDOCAINE-MPF 2% 5 ML VIAL ONE (07:13)
--- NOTE | 2023-06-25 07:29 | HISTORY & PHYSICAL EXAMINATION ---
Chief Complaint - Chief Complaint Chief Complaint: here for colonoscopy History of Present Illness - History Obtained From Records Reviewed: yes History obtained from: pt Exam Limitations: none - History of Present Illness HPI Comment/Other: history 2 adenomas in 2015 and diverticulitis 2021. here for colonoscopy. no abdominal discomfort for a few months History - Past Medical History Cardiovascular: reports: Hypertension, High cholesterol Respiratory: reports: None Endocrine/Autoimmune: reports: None GI: reports: GERD : reports: None HEENT: reports: None Psych: reports: None Musculoskeletal: reports: None Derm: reports: Eczema MRSA Hx?: No - Past Surgical History General: reports: Hiatal hernia repair, Colonoscopy - POLST Patient has POLST: No Meds/Allgy - Home Medications Home Medications: Ambulatory Orders Medication Instructions Recorded Confirmed Omeprazole [PriLOSEC] 20 mg PO DAILY 10/08/14 06/24/23 Amlodipine Besylate 10 mg PO DAILY 12/11/14 06/24/23 Lisinopril [Zestril] 40 mg PO DAILY 05/18/21 06/24/23 Pravastatin Sodium 20 mg PO DAILY 05/18/21 06/24/23 Tamsulosin [Flomax] 0.4 mg PO DAILY #20 cap 06/30/21 06/24/23 Docusate Sodium 100Mg Capsule 100 mg PO DAILY #15 cap 12/30/21 [Colace 100Mg Capsule] Ondansetron Odt [Zofran] 4 mg TL Q6H PRN #15 tablet 12/30/21 buPROPion HCL [Wellbutrin Xl] 300 mg PO DAILY 06/24/23 06/24/23 metFORMIN [Glucophage] 500 mg PO DAILY PM 06/24/23 06/24/23 - Allergies Allergies/Adverse Reactions: Allergies Allergy/AdvReac Type Severity Reaction Status Date / Time rosuvastatin AdvReac Unknown Verified 06/25/23 06:53 Review of Systems - Other Findings Other Findings: 10 pt ros as above otherwise unremarkable Exam - Physical Exam General Appearance: positive: No acute distress, Alert Eyes Bilateral: positive: PERRL, EOMI ENT: positive: No signs of dehydration Neck: positive: No JVD, Trachea midline Respiratory: positive: No respiratory distress Cardiovascular: positive: Regular rate & rhythm Abdomen: positive: No distention Neurologic/Psychiatric: positive: Oriented x3 Conclusion/Plan - Problem List (1) Colon cancer screening Conclusion/Plan: history colon polyps. plan diverticulitis. parq held and consent obtained - Lab Results Lab results reviewed: Yes
[2023-06-25] MEDS ORDERED: PROPOFOL 200 MG/20 ML VIAL IVP ONE (07:49)
[2023-06-25] MEDS: LACTATED RINGERS 300 ML IV ONE (08:28)
[2023-06-25] MEDS ORDERED: iohexoL-300 100 ML VIAL ONE (09:04)
[2023-06-25] MEDS ORDERED: DIATRIZOATE MEGLU/DIATRIZO SOD 30 ML BOTTLE PO ONE (09:27)
[2023-06-25] MEDS: DIATRIZOATE MEGLU/DIATRIZO SOD 30 ML BOTTLE PO ONE (10:28)
[2023-06-25 10:39] VITALS: BP 163/100; O2SAT 97
--- NOTE | 2023-06-25 10:54 | CT Report ---
PROCEDURE: Abdomen/Pelvis W INDICATIONS: incomplete colonoscopy. 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 Images were recorded and evaluated at appropriate window settings. Reformats: coronal and sagittal. F or radiation dose reduction, the following was used: automated exposure control, adjustment of mA and /or kV according to patient size. COMPARISON: CT abdomen and pelvis 01/24/2020 FINDINGS: Image quality: Diagnostic. Lower chest: Unremarkable. Liver: Hepatic calcification is present. Hepatic dome has not been fully included in the [id number] w and cannot be evaluated. Mild steatosis. Gallbladder and biliary tree: Spleen: No splenomegaly. Pancreas: No pancreatic ductal dilation. Adrenals: No adrenal nodule. Kidneys and ureters: No hydronephrosis. No renal cystic lesion which requires follow up. No solid mas s. Stomach, bowel and peritoneum: No obstruction. Contrast is present within the rectum extending to the mid sigmoid colon. Remaining colon is not opacified. It demonstrates mild fluid-filled prominence wi thout gross obstruction. Scattered colonic diverticula are present. Lymph nodes: No central or retroperitoneal adenopathy. Vessels: No infrarenal aortic aneurysm. PELVIS Reproductive organs: Unremarkable. Bladder: Bladder wall is diffusely thickened and incompletely distended. Pelvic lymph nodes: No pelvic adenopathy by size criteria. Bones: No aggressive osseous abnormality. Other: Bilateral fat-containing inguinal hernias. IMPRESSION: Mild fluid-filled prominence of the colon without gross obstruction. Contrast is present to the mid sigmoid colon and is unremarkable. Mild appearance of bladder wall thickening suspected to be related to incomplete distention. Reviewed by: Lydia Haywood MD on 06/25/2023 10:53 AM PDT Approved by: Lydia Haywood MD on 06/25/2023 10:53 AM PDT Station ID: [id number]
--- NOTE | 2023-06-25 12:00 | ANESTHESIA POST OP EVALUATION ---
Anesthesia Post Eval - Post Anesthesia Eval Vitals: Last Vital Signs Temp 36.6 C 06/25/23 10:32 Pulse 84 06/25/23 10:32 Resp 16 06/25/23 10:32 BP 163/100 H 06/25/23 10:32 Pulse Ox 97 06/25/23 10:32 O2 Flow Rate CV Function Including HR & BP: Stable Pain Control: Satisfactory Nausea & Vomiting: Negative Mental Status: Baseline Respiratory Status: Airway Patent Hydration Status: Satisfactory Anesthesia Complications: None
== END 2023-06-25 06:27 | disposition home or self-care (01) ==
LOC: SDS 06:26
PROVIDERS: ATTEND Surgery
DX: Z12.11 Encounter for screening for malignant neoplasm of colon (principal); I10 Essential (primary) hypertension; F17.200 Nicotine dependence, unspecified, uncomplicated; Z86.010 Personal history of colon polyps; Z87.19 Personal history of other diseases of the digestive system
CPT/HCPCS: 45330; 74177; J7120; Q9963